=== PATIENT | male | born 1995 | race Caucasian/White ===

== ENCOUNTER 2019-12-20 17:35 | Outpatient (CLI) | payer BC, SELFPAY ==
--- NOTE | ~2019-12-20 | XR_ITS ---
XR lumbar spine min 4V DATE: 12/20/2019 18:17 INDICATION: Back pain TECHNIQUE: 5 standing views COMPARISON: None FINDINGS: There is levoscoliosis of the lumbar spine. No fracture or bone destruction or spondylolisthesis. Lumbar pedicles are intact. The sacroiliac join ts are normal. IMPRESSION: Scoliosis Reviewed, dictated and finalized at location A. IMPRESSION: Scoliosis
--- NOTE | ~2019-12-20 | XR_ITS ---
XR thoracic spine 2V DATE: 12/20/2019 18:17 INDICATION: Thoracic back pain, lumbar back pain. No injury. TECHNIQUE: AP, lateral, swimmer views COMPARISON: None FINDINGS: Minimal thoracic scoliosis. No fracture or bone destruction. The thoracic pedicles are inta ct. No paraspinal soft tissue thickening. IMPRESSION: Minimal thoracic scoliosis Reviewed, dictated and finalized at location A. IMPRESSION: Minimal thoracic scoliosis
== END 2019-12-20 17:36 | disposition home or self-care (01) ==
PROVIDERS: PCP Pediatrics Adolescent Medicine
DX: M54.6 Pain in thoracic spine (principal); M41.9 Scoliosis, unspecified
CPT/HCPCS: 72070; 72110

== ENCOUNTER 2020-05-07 15:42 | Emergency (ER) | payer BC, SELFPAY ==
[2020-05-07 15:49] VITALS: BP 130/82; PULSE 67; RESP 16; TEMP 37.2; O2SAT 97
--- NOTE | 2020-05-07 16:28 | ED.EAR ---
HPI - Ear Problem General Chief complaint: Ear Stated complaint: ear infection Time Seen by Provider: 05/07/20 16:05 Source: patient and RN notes reviewed Mode of arrival: ambulatory Limitations: no limitations History of Present Illness HPI Narrative: 24 year old male who presents to [facility] with 2 month history of hearing difficulty with one week duration of right ear discomfort. Patient states that he work at [employer] and he has to wear ear plugs at work for ear protection and it is a fairly dirty work environment. Patient denies any discharge from his ears, no fevers, chills or sweats or any cough, sinus congestion or drainage. Patient denies any known injury to his ears and denies any tinnitus or any ear drainage. MD Complaint: ear pain and decreased hearing Location: right ear Duration: constant Severity: moderate Relieving factors: nothing Exacerbating factors: nothing Discharge from ear: Reports no Associated symptoms ear: decreased hearing Treatment prior to arrival: none Related Data Home Medications Medication Instructions Recorded Confirmed No Home Medications 05/07/20 05/07/20 Allergies Allergy/AdvReac Type Severity Reaction Status Date / Time No Known Allergies Allergy Verified 05/07/20 16:03 Review of Systems Review of Systems: Narrative: CONSTITUTIONAL: Denies fever, chills, or sweats. EYES: Denies visual changes, redness, or discharge. ENT: Denies rhinorrhea, congestion, sore throat, positive right ear pain with decrease in hearing. CARDIOVASCULAR: Denies chest pain, palpitations, or edema. RESPIRATORY: Denies cough or dyspnea. GASTROINTESTINAL: Denies abdominal pain, nausea, vomiting, or diarrhea. GENITOURINARY: Denies dysuria or hematuria. SKIN: Denies rash or itching. MUSCULOSKELETAL: Denies back pain, joint pain, or myalgia. NEUROLOGIC: Denies headache, numbness, or weakness. PSYCHIATRIC: Denies anxiety or depression. All systems reviewed & are unremarkable except as noted in HPI and below PMFSH Past Medical History Medical History (Updated 05/10/20 @ 15:07 by Seema Stovall NP) Left humeral fracture Surgical History Surgical History (Updated 05/07/20 @ 17:40 by Seema Stovall NP) Hx of tonsillectomy Family History Family History (Updated 05/07/20 @ 17:45 by Seema Stovall NP) Other No significant family history Social History Social History (Updated 05/07/20 @ 17:46 by Seema Stovall NP) Smoking status: Never smoker Substance use: current Last use: social Living arrangements: with family Gender identity (if verbalized by the patient): Male Comments At time of signature, agree with nursing past medical, surgical, social and family history. There is no relevant family history pertinent to the presenting complaint Exam Narrative: Exam Narrative: GENERAL: Well-appearing, well-nourished, and in no acute distress. HEAD: Normocephalic, atraumatic. EYES: PERRLA and EOMI. ENT: Nares clear, no rhinorrhea or epistaxis. Mucous membranes moist.Bilateral ears full of dark black impacted cerumen, removal of cerumen from bilateral ear with use of peroxide and warm water irrigation with large amount of ear wax removed. TM's noted to be normal after wax removal with no redness or drainage from ear canals. throat pink with no lesions or exudate no tonsil swelling. NECK: Supple.no lymphadenopathy CHEST: Clear to auscultation. No respiratory distress.SAO2 97% on room air HEART: Regular rate and rhythm. No murmur heard. Normal peripheral pulses. ABDOMEN: Soft, nontender, nondistended, normal active bowel sounds. EXTREMITIES: Normal range of motion. No edema. SKIN: Warm, dry, no rash. NEURO: No focal deficits. Alert and oriented x3. Course Vital Signs Vital signs: Vital Signs Temperature 37.2 C 05/07/20 15:49 Pulse Rate 67 05/07/20 15:49 Respiratory Rate 16 05/07/20 15:49 Blood Pressure 130/82 05/07/20 15:49 Pulse Oximetry 97
== END 2020-05-07 16:40 | disposition home or self-care (01) ==
PROVIDERS: Emergency Provider Registered Nurse
DX: H61.23 Impacted cerumen, bilateral (principal)
CPT/HCPCS: 69209; 99212; A9270; G0463